=== PATIENT | male | born 1990 | race Caucasian/White ===

== ENCOUNTER → 2016-08-06 | Outpatient (CLI) | payer BC ==
[2016-08-06 09:00] LABS: ABSOLUTE EOSINOPHILS # (AUTO) 0.3 10^3/uL (0.0-0.6); ABSOLUTE LYMPHOCYTES (AUTO) 2.2 10^3/uL (0.5-4.7); ABSOLUTE MONOCYTES (AUTO) 0.4 10^3/uL (0.1-1.4); ABSOLUTE NEUT (AUTO) 2.4 10^3/uL (1.7-8.2); BASOPHILS % (AUTO) 0.7 % (0-2); EOSINOPHILS % (AUTO) 5.7 % (0-6); HEMATOCRIT 43.2 % (37.9-51.0); HEMOGLOBIN 15.3 g/dL (13.5-17.0); HGB HCT DIFFERENCE 2.7; MEAN CORPUSCULAR HEMOGLOBIN 31.3 pg (27.0-33.4); MEAN CORPUSCULAR HGB CONC 35.4 g/dL (32.0-36.0); MEAN CORPUSCULAR VOLUME 89 fl (80-97); MONOCYTES % (AUTO) 7.6 % (3-13); RED BLOOD COUNT 4.88 10^6/uL (4.35-5.55); WHITE BLOOD COUNT 5.3 10^3/uL (4.0-10.5)
[2016-08-06 09:21] LABS: ALANINE AMINOTRANSFERASE 41 U/L (21-72); ALBUMIN 4.4 g/dL (3.5-5.0); ALKALINE PHOSPHATASE 69 U/L (38-126); ANION GAP 12 (5-19); ASPARTATE AMINO TRANSFERASE 28 U/L (17-59); BILIRUBIN,TOTAL 0.6 mg/dL (0.2-1.3); BLOOD UREA NITROGEN 12 mg/dL (7-20); CALCIUM 9.7 mg/dL (8.4-10.2); CARBON DIOXIDE 28 mmol/L (22-30); CHLORIDE 102 mmol/L (98-107); CHOLESTEROL 159.45 mg/dL (0-200); CREATININE RESULT 0.87 mg/dL (0.52-1.25); Direct HDL 48 mg/dL (>40); GLUCOSE 94 mg/dL (75-110); POTASSIUM 4.7 mmol/L (3.6-5.0); SODIUM 141.9 mmol/L (137-145); TOTAL PROTEIN 7.7 g/dL (6.3-8.2); TRIGLYCERIDES 73 mg/dL (<150)
[2016-08-06 09:32] LABS: DIRECT LDL 95 mg/dL (<100)
== END ==
LOC: OD 07:49
PROVIDERS: ATTEND Internal Medicine
DX: Z00.00 Encounter for general adult medical examination without abnormal findings (principal)
CPT/HCPCS: 36415; 80053; 80061; 84443; 85025